=== PATIENT | female | born 1995 | race Hispanic/Latino ===

== ENCOUNTER 2017-07-16 11:48 | Emergency (ER) | payer OTHER ==
[~2017-07-16] VITALS: Ht 152.4 cm; Wt 81.6 kg
== END 2017-07-16 12:23 | disposition home or self-care (01) ==
LOC: ER 11:48
DX: L02.415 Cutaneous abscess of right lower limb (principal)
CPT/HCPCS: 99284

== ENCOUNTER 2017-09-08 19:19 | Emergency (ER) | payer OTHER ==
[~2017-09-08] VITALS: Ht 152.4 cm; Wt 81.6 kg
[2017-09-08 19:56] VITALS: BP 142/91
== END 2017-09-08 20:06 | disposition home or self-care (01) ==
LOC: ER 19:19
DX: L73.2 Hidradenitis suppurativa (principal); L30.9 Dermatitis, unspecified
CPT/HCPCS: 99282

== ENCOUNTER 2017-10-29 19:06 | Inpatient (IN) | payer OTHER ==
[~2017-10-29] VITALS: Ht 152.4 cm; Wt 76.2 kg
[~2017-10-29 19:06] MED LIST: DEXAMETHASONE SOD PHOS INJ 4 MG/ML VIAL ONE; FENTANYL CITRATE/PF 100MCG/2 ML INJ ONE; KETOROLAC TROMETHAMINE 30 MG/ML VIAL ONE; LIDOCAINE HCL 2% LOCAL INJ 5 ML SDV VIAL INJ ONE; MIDAZOLAM HCL 2 MG/2 ML VIAL ONE; ONDANSETRON HCL INJ 2 MG/ML VIAL ONE; PROPOFOL IV EMULSION 10 MG/ML 20 ML VIAL ONE; SEVOFLURANE INHAL SOLN 250 ML PEN BTL ONE
[2017-10-29] MEDS ORDERED: ACETAMINOPHEN 325 MG TAB PO ONE ×2 (19:30)
[2017-10-29 19:46] LABS: BASOPHILS # (AUTO) 0.1 (0.0-0.1); BASOPHILS % 0.3 % (0.0-1.0); EOSINOPHILS # (AUTO) 0.2 (0.0-0.4); EOSINOPHILS % 0.8 % (0.0-6.0); HEMATOCRIT 35.6 % (34.2-44.1); HEMOGLOBIN 11.7 g/dL (12.0-16.0); LYMPHOCYTES # (AUTO) 2.1 (1.0-3.2); MEAN CORPUSCULAR HEMOGLOBIN 26.9 pg (28-32); MEAN CORPUSCULAR HGB CONC 32.9 g/dL (31-35); MEAN CORPUSCULAR VOLUME 81.8 fL (81-99); MONOCYTES # (AUTO) 1.4 (0.2-0.8); MONOCYTES % 5.8 % (4.4-11.3); NEUTROPHILS # (AUTO) 19.8 (2.1-6.9); NEUTROPHILS % 83.2 % (38.7-80.0); PLATELET COUNT 467 x10e3/uL (140-360); RED BLOOD COUNT 4.35 x10e6/uL (3.6-5.1); RED CELL DISTRIBUTION WIDTH 15.3 % (11.7-14.4)
[2017-10-29 19:50] LABS: CLARITY,URINE SL CLOUDY (CLEAR); COLOR,URINE YELLOW (YELLOW)
[2017-10-29 19:51] LABS: BILIRUBIN,URINE NEGATIVE (NEGATIVE); KETONES,URINE TRACE (NEGATIVE); LEUKOCYTE ESTERASE ,URINE NEGATIVE (NEGATIVE); NITRITE,URINE NEGATIVE (NEGATIVE); PROTEIN,URINE DIPSTICK 1+ (NEGATIVE); URINE UROBILINOGEN 1 mg/dL (0.2 - 1)
[2017-10-29 19:58] LABS: ALANINE AMINOTRANSFERASE 16 IU/L (0-55); ALBUMIN 3.2 g/dL (3.5-5.0); ALBUMIN/GLOBULIN RATIO 0.6 (0.8-2.0); ALKALINE PHOSPHATASE 97 IU/L (40-150); ANION GAP 15.5 mmol/L (8-16); BLOOD UREA NITROGEN 7 mg/dL (7-26); BUN/CREATININE RATIO 10 (6-25); CALCIUM 9.2 mg/dL (8.4-10.2); CARBON DIOXIDE 24 mmol/L (22-29); CHLORIDE 97 mmol/L (98-107); CREATININE, SERUM 0.71 mg/dL (0.57-1.11); EST GLOMERULAR FILTRATION RATE > 60 ML/MIN (60-); GLUCOSE 100 mg/dL (74-118); POTASSIUM 3.5 mmol/L (3.5-5.1); SODIUM 133 mmol/L (136-145)
[2017-10-29 20:00] LABS: EPITHELIAL CELLS,URINE MANY /LPF
[2017-10-29 20:01] LABS: MUCUS,URINE MANY (RARE)
[2017-10-29 20:02] LABS: BACTERIA,URINE FEW /HPF
[2017-10-29] MEDS ORDERED: VANCOMYCIN 1GM/NS 250 ML 250 ML IV ONE (20:45)
[2017-10-29] MEDS ORDERED: PIPER-TAZ 3.375 GM 50 ML IV ONE (20:45)
--- NOTE | 2017-10-29 20:58 | Diagnostic Imaging Report ---
EXAM: CT Chest WITH contrast INDICATION: Redness right breast COMPARISON: None. TECHNIQUE: The Chest was scanned utilizing a multidetector helical scanner after administration of IV contrast. Coronal and sagittal reformations were obtained. Reformatted axial MIP images were obtained and reviewed. IV CONTRAST: 100 mL Isovue-370 COMPLICATIONS: None RADIATION DOSE: Total DLP: 519 mGy*cm Estimated effective dose: (DLP x 0.015 x size factor) mSv CTDIvol has been reviewed. It is below the limits set by the Radiation Protocol Committee (RPC). FINDINGS: Lines and Tubes: None. Lower Neck: The visualized thyroid gland is grossly unremarkable with no suspicious or significant nodule identified. Heart and Great Vessels: The aorta and main pulmonary artery measure 24 and 26 mm. respectively. No pericardial effusion. While examination is not tailored for pulmonary artery evaluation, no central pulmonary embolus identified. Lymph Nodes: No suspicious mediastinal or hilar adenopathy. Mildly enlarged right axillary lymph nodes, largest 21 x 11 mm. Lungs: No pneumothorax or pleural effusion. No focal consolidation. Trachea and central bronchi are unremarkable. Upper abdomen: No acute findings. Bones and Soft Tissues: Skin thickening of the right breast with multiple multi septated fluid collections filling majority of right breast. Total area approximately 1 14 x 67 x 88 mm. IMPRESSION: 1. Majority of right breast filled by multiple by multiloculated fluid collections presumably abscesses with overlying skin cellulitis. Please note that inflammatory breast cancer can have similar appearance. Surgical consultation, close clinical correlation and follow-up recommended. Signed by: Dr. Shubham Cono MD on 10/29/2017 8:54 PM
[2017-10-29] MEDS ORDERED: MORPHINE SULFATE 2 MG/ML SYR IV PRN (21:15)
[2017-10-29] MEDS ORDERED: VANCOMYCIN 1GM/NS 250 ML 250 ML IV SCH (21:15)
[2017-10-29] MEDS: SODIUM CHLORIDE 0.9% 1000ML 1,000 ML IV SCH (21:32)
[2017-10-29] MEDS: PIPER-TAZ 3.375 GM 50 ML IV SCH (21:37)
[2017-10-29 22:16] VITALS: BP 110/61
[2017-10-29 22:30] VITALS: BP 110/61
[2017-10-30] VITALS (8 sets, daily range): BP systolic 98–113; BP diastolic 56–73
[2017-10-30] MEDS ORDERED: SODIUM CHLORIDE 0.9% 50ML 50 ML ONE (01:21)
[2017-10-30] MEDS ORDERED: IOPAMIDOL 370 MG/ML 200 ML INFUS..BTL INJ ONE (01:22)
[2017-10-30] MEDS: ACETAMINOPHEN 325 MG TAB PO PRN (02:48)
[2017-10-30 04:48] LABS: BASOPHILS # (AUTO) 0.1 (0.0-0.1); BASOPHILS % 0.3 % (0.0-1.0); EOSINOPHILS # (AUTO) 0.3 (0.0-0.4); EOSINOPHILS % 1.4 % (0.0-6.0); HEMATOCRIT 31.9 % (34.2-44.1); HEMOGLOBIN 10.4 g/dL (12.0-16.0); LYMPHOCYTES # (AUTO) 1.4 (1.0-3.2); MEAN CORPUSCULAR HEMOGLOBIN 26.6 pg (28-32); MEAN CORPUSCULAR HGB CONC 32.6 g/dL (31-35); MEAN CORPUSCULAR VOLUME 81.6 fL (81-99); MONOCYTES # (AUTO) 1.3 (0.2-0.8); MONOCYTES % 6.3 % (4.4-11.3); NEUTROPHILS # (AUTO) 16.8 (2.1-6.9); NEUTROPHILS % 84.3 % (38.7-80.0); PLATELET COUNT 413 x10e3/uL (140-360); RED BLOOD COUNT 3.91 x10e6/uL (3.6-5.1); RED CELL DISTRIBUTION WIDTH 15.3 % (11.7-14.4)
[2017-10-30 05:09] LABS: ALANINE AMINOTRANSFERASE 13 IU/L (0-55); ALBUMIN 2.7 g/dL (3.5-5.0); ALBUMIN/GLOBULIN RATIO 0.6 (0.8-2.0); ALKALINE PHOSPHATASE 85 IU/L (40-150); ANION GAP 13.4 mmol/L (8-16); BLOOD UREA NITROGEN 7 mg/dL (7-26); BUN/CREATININE RATIO 12 (6-25); CALCIUM 8.5 mg/dL (8.4-10.2); CARBON DIOXIDE 23 mmol/L (22-29); CHLORIDE 100 mmol/L (98-107); EST GLOMERULAR FILTRATION RATE > 60 ML/MIN (60-); GLUCOSE 99 mg/dL (74-118); POTASSIUM 3.4 mmol/L (3.5-5.1); SODIUM 133 mmol/L (136-145)
[2017-10-30] MEDS: SODIUM CHLORIDE 0.9% 1000ML 1,000 ML IV SCH (05:27)
[2017-10-30] MEDS: PIPER-TAZ 3.375 GM 50 ML IV SCH ×3 (05:27→22:00)
[2017-10-30] MEDS: VANCOMYCIN 1GM/NS 250 ML 250 ML IV SCH ×2 (09:15→21:35)
--- NOTE | 2017-10-30 09:19 | Consultation ---
DATE OF CONSULTATION: October 30, 2017 Patient is a 22-year-old female who presents with pain and swelling in her right breast. She said she has had symptoms for about 2 weeks, but got progressively worse. She saw a doctor, but nothing was recommended. She came the emergency room yesterday where evaluation revealed a probable abscess in the right breast. Patient has had fever. She has not had any drainage. PAST MEDICAL HISTORY: Otherwise unremarkable. She denies chronic medical problems. She has not had previous surgeries. CURRENT MEDICATIONS: None. ALLERGIES: NO KNOWN ALLERGIES. FAMILY HISTORY: Noncontributory. SOCIAL HISTORY: The patient had smoked occasional cigarettes up until about 4 weeks ago. Says she does not smoke anymore. She occasionally drinks alcohol. REVIEW OF SYSTEMS: As stated above. Otherwise, was negative. PHYSICAL EXAMINATION GENERAL: The patient is awake and alert, and in no distress. VITAL SIGNS: Normal. She did have a temperature 101 during the night. HEENT: Reveals no scleral icterus. NECK: Has no masses. LUNGS: Equal breath sounds are clear bilaterally. CARDIAC: Regular rate and rhythm. No murmur. BREASTS: On the right breast, there is erythema, swelling with fluctuance in the medial aspect of right breast. The remainder of the breast appears normal. ABDOMEN: Soft with no tenderness or mass. EXTREMITIES: No edema. Pulses are palpable. NEUROLOGIC: Intact. LAB TESTS: The white blood cell count was 23,000 admission and 19.9 today. Hemoglobin 10 and hematocrit 32. Chemistries are essentially normal. ASSESSMENT: This is a 22-year-old female with abscess in the right breast, which was very large. PLAN: Incision and drainage to be done today. Also, recommend to continue the patient on IV antibiotics as have been ordered. Also, plan to biopsy the area at the time of the I and D. This was explained to the patient, including risks, benefits and alternatives. She understands. She has had the opportunity to ask questions. Thank you for asking me to see Ms. Soriano. Job#: [id number] KATY
[2017-10-30] MEDS ORDERED: LIDOCAINE HCL 1% LOCAL INJ 20 ML VIAL ONE (11:26)
[2017-10-30] MEDS ORDERED: BACITRACIN 50,000 UNIT VIAL ONE (11:26)
[2017-10-30] MEDS ORDERED: BUPIVACAINE 0.25%/EPI 30ML SDV INJ ONE (11:26)
[2017-10-30] MEDS ORDERED: HYDROCODONE/APAP 5MG-325MG TAB PO PRN (11:45)
[2017-10-30] MEDS ORDERED: ACETAMINOPHEN 325 MG TAB PO PRN (11:45)
[2017-10-30] MEDS ORDERED: MORPHINE SULFATE 2 MG/ML SYR ONE (12:01)
--- NOTE | 2017-10-30 12:21 | Operative Report ---
DATE OF PROCEDURE: October 30, 2017 PREOPERATIVE DIAGNOSIS: Complex abscess, right breast. POSTOPERATIVE DIAGNOSIS: Complex abscess, right breast. PROCEDURE PERFORMED: Incision and drainage of complex abscess, right breast with incisional biopsy from abscess of right breast. GRINDING AND POLISHING LABORER: None. ANESTHESIA: General. INDICATIONS AND FINDINGS: The patient is a 22-year-old female who presents with complaints of pain and swelling in her right breast. At surgery, there was a large abscess involving the right breast tracking to the entire medial aspect of the breast down to the chest wall. It was multiloculated containing approximately 150 mL of purulent fluid. TECHNIQUE: After adequate general anesthesia and the patient in the supine position, the right breast was prepped and draped in a sterile fashion with Betadine solution. A transverse incision was made over the area of swelling and carried down through subcutaneous tissue and abscess cavity was entered. About 150 mL of purulent fluid was drained. A sample was taken for culture and sensitivity. The abscess was multiloculated and tracked inferiorly into the breast and also down to the chest wall. All loculations were broken up. All small cavities were broken up. All purulent fluid was drained. Within the abscess cavity, a biopsy was taken and sample of breast tissue excised. Hemostasis was achieved with electrocautery. The abscess cavity was irrigated with saline. It was then packed open with 1-inch Iodoform gauze and sterile dressing applied. The patient tolerated the procedure well. Estimated blood loss was 25 mL. There were no complications. All counts were correct. Patient was taken to the recovery room in satisfactory condition. Job#: [id number] RI cc:RAINA VINES MD
--- NOTE | 2017-10-30 15:13 | History and Physical ---
FAMILY PHYSICIAN: Dr. Cliff Nieto CHIEF COMPLAINT: Right breast abscess. HISTORY: A 22-year-old female started approximately 2-3 weeks ago. Did a therapy that she knew performed to her breast, and then subsequently when she was doing multiple breast compressions she noticed that there was some bruises and then subsequently swelling. She tried to get into an appointment with her family physician, which she did. Did not obtain antibiotics as yet. The breast got worse. Therefore, the patient came to emergency room for evaluation. Here the patient had a temperature up to 101. She had a large right breast abscess. She is status post breast surgery with incision and drainage of the left breast abscess done by Dr. Cliff Marie. She also has a biopsy of the breast tissue as well. The patient is otherwise stable at this time. PAST MEDICAL HISTORY: Noncontributory. PAST SURGICAL HISTORY: Status post right breast incision and drainage now. SOCIAL HISTORY: The patient does not smoke or use alcohol. No recreational drugs. ALLERGIES: NO KNOWN ALLERGY. HOME MEDICATIONS: None. REVIEW OF SYSTEMS: Right breast swelling, abscess, fever, and pain. PHYSICAL EXAMINATION VITAL SIGNS: Temperature is 101, blood pressure 108/73, pulse rate 95, respirations 18. GENERAL: The patient is not in acute distress. She is awake. HEENT: Normocephalic, atraumatic and anicteric. NECK: Supple grossly. PULMONARY: Clear. CARDIOVASCULAR: Tachycardia. ABDOMEN: Soft. BREASTS: Right breast abscess, status post incision and drainage. NEUROLOGIC: No focal deficit. WBC is 23.8, hemoglobin 11.7, hematocrit 35.6, and platelets are 467,000. Chemistry: Sodium is 133, potassium 3.5, chloride 97, bicarb 24, BUN 7, creatinine 0.7, glucose is 100. Wound culture and breast culture still pending, but there were many gram-positive cocci in clusters. IMPRESSION 1. Right breast abscess with gram-negative cocci in clusters: Most likely staphylococcus. Will check the sensitivity. 2. Status post right breast incision and drainage. PLAN: IV antibiotics. Will consult Dr. Linder. Dr. Cliff Marie already did the surgery. Will monitor the patient closely. Continue with Zosyn and vancomycin for now. Job#: [id number] RI
[2017-10-30] MEDS: SENNOSIDES 8.6 MG TAB PO SCH (17:00)
--- NOTE | 2017-10-30 21:03 | Consultation ---
DATE OF CONSULTATION: REASON FOR CONSULTATION: Right breast abscess. HISTORY: This is a 22-year-old female, history of recurrent folliculitis and cyst. The patient had multiple cyst infections before. Patient comes in with redness and swelling of her right breast. Patient was admitted. PAST MEDICAL HISTORY: Multiple skin infections. ALLERGIES: NKA. SOCIAL HISTORY: There is no smoking, drug abuse, alcohol abuse. FAMILY HISTORY: Otherwise unremarkable. REVIEW OF SYSTEMS: HEENT: Negative. PULMONARY: Negative. CARDIAC: Negative. : Negative. SKIN: No rash. LABS: White count on admission was 23, hemoglobin 11.7. Her sodium 133, potassium 3.5, creatinine of 0.7, glucose 99. Patient was started on Zosyn and vancomycin. Review of systems is negative. PHYSICAL EXAMINATION: GENERAL: She is currently alert and oriented, does not seem to be in acute distress. VITALS: Stable, currently afebrile. HEENT: She does not appear icteric. NECK: Supple. CHEST: Clear. HEART: S1 and S2. No S3, S4, murmur. ABDOMEN: Soft. BREASTS: She just has the surgery. Patient had incision and drainage. IMPRESSION: Breast abscess. Agree with incision and drainage. Continue vancomycin. Continue Zosyn. Await culture and sensitivity. Further recommendations to follow. Job#: [id number]
[2017-10-31] VITALS (7 sets, daily range): BP systolic 103–195; BP diastolic 56–86
[2017-10-31] MEDS: PIPER-TAZ 3.375 GM 50 ML IV SCH ×3 (05:18→22:00)
[2017-10-31 05:35] LABS: ANION GAP 13.7 mmol/L (8-16); BLOOD UREA NITROGEN 6 mg/dL (7-26); BUN/CREATININE RATIO 10 (6-25); CALCIUM 8.7 mg/dL (8.4-10.2); CARBON DIOXIDE 23 mmol/L (22-29); CHLORIDE 104 mmol/L (98-107); CREATININE, SERUM 0.58 mg/dL (0.57-1.11); EST GLOMERULAR FILTRATION RATE > 60 ML/MIN (60-); GLUCOSE 110 mg/dL (74-118); POTASSIUM 3.7 mmol/L (3.5-5.1); SODIUM 137 mmol/L (136-145)
[2017-10-31 06:38] LABS: BASOPHILS % 0.1 % (0.0-1.0); HEMATOCRIT 30.2 % (34.2-44.1); HEMOGLOBIN 9.7 g/dL (12.0-16.0); LYMPHOCYTES # (AUTO) 1.4 (1.0-3.2); LYMPHOCYTES % 7.5 % (18.0-39.1); MEAN CORPUSCULAR HEMOGLOBIN 26.5 pg (28-32); MEAN CORPUSCULAR HGB CONC 32.1 g/dL (31-35); MEAN CORPUSCULAR VOLUME 82.5 fL (81-99); MONOCYTES # (AUTO) 0.8 (0.2-0.8); MONOCYTES % 4.1 % (4.4-11.3); NEUTROPHILS # (AUTO) 16.5 (2.1-6.9); NEUTROPHILS % 87.2 % (38.7-80.0); PLATELET COUNT 456 x10e3/uL (140-360); RED BLOOD COUNT 3.66 x10e6/uL (3.6-5.1); RED CELL DISTRIBUTION WIDTH 15.2 % (11.7-14.4)
[2017-10-31] MEDS: VANCOMYCIN 1GM/NS 250 ML 250 ML IV SCH ×2 (08:15→21:00)
[2017-10-31] MEDS: SENNOSIDES 8.6 MG TAB PO SCH ×2 (09:00→15:36)
[2017-10-31] MEDS: ACETAMINOPHEN 325 MG TAB PO PRN (18:30)
[2017-10-31] MEDS: ONDANSETRON HCL INJ 2 MG/ML VIAL IV PRN (22:13)
[2017-11-01 00:39] VITALS: BP 116/76
[2017-11-01 04:47] LABS: BASOPHILS % 0.3 % (0.0-1.0); EOSINOPHILS # (AUTO) 0.2 (0.0-0.4); HEMOGLOBIN 9.6 g/dL (12.0-16.0); LYMPHOCYTES # (AUTO) 1.8 (1.0-3.2); LYMPHOCYTES % 11.9 % (18.0-39.1); MEAN CORPUSCULAR HEMOGLOBIN 26.3 pg (28-32); MEAN CORPUSCULAR VOLUME 82.2 fL (81-99); MONOCYTES % 6.7 % (4.4-11.3); NEUTROPHILS # (AUTO) 12.3 (2.1-6.9); NEUTROPHILS % 79.2 % (38.7-80.0); PLATELET COUNT 437 x10e3/uL (140-360); RED BLOOD COUNT 3.65 x10e6/uL (3.6-5.1); RED CELL DISTRIBUTION WIDTH 15.2 % (11.7-14.4)
[2017-11-01] MEDS: ACETAMINOPHEN 325 MG TAB PO PRN (04:48)
[2017-11-01] MEDS: PIPER-TAZ 3.375 GM 50 ML IV SCH ×2 (05:10→13:42)
[2017-11-01 05:46] VITALS: BP 116/60
[2017-11-01 08:00] VITALS: BP 116/60
[2017-11-01 08:05] VITALS: BP 118/56
[2017-11-01] MEDS: VANCOMYCIN 1GM/NS 250 ML 250 ML IV SCH (09:00)
[2017-11-01] MEDS: SENNOSIDES 8.6 MG TAB PO SCH ×2 (09:00→16:21)
[2017-11-01] MEDS ORDERED: MORPHINE SULFATE INJ 4 MG/ML INJ IV PRN (11:45)
[2017-11-01] MEDS ORDERED: SODIUM CHLORIDE 0.9% 250ML 250 ML ONE (12:39)
[2017-11-01] MEDS: ONDANSETRON HCL INJ 2 MG/ML VIAL IV PRN (12:44)
[2017-11-01] MEDS ORDERED: TYLENOL WITH C1 EACH PO (15:19)
[2017-11-01] MEDS ORDERED: BACTRIM DS TAB1 EACH PO (15:19)
[2017-11-01 16:00] VITALS: BP 123/76
--- NOTE | 2017-11-02 09:17 | Discharge Summary ---
SUPERVISOR FINAL: Dr. Cliff Marie FINAL DIAGNOSES 1. Right breast abscess, status post incision and drainage with bacteria of methicillin-resistant Staphylococcus aureus. 2. Right breast pain. Biopsies still pending with postsurgical intervention. SUMMARY: A 22-year-old female came in with right breast abscess, swelling, fever, leukocytosis. Patient was immediately taken to the operating room where Dr. Cliff Marie did a breast incision and drainage. The patient's wound culture grew out MRSA. Dr. Linder was consulted. The patient adamantly wanted to go home. On the day of discharge on November 01, 2017, Dr. Linder gave the patient oral antibiotics and also educating the patient on wound care. The patient to follow with Dr. Cliff Marie within this week. Continue with wound care per recommendation and instructions. The patient to follow up with Dr. Linder for antibiotic adjustment if needed. She also was instructed to follow up with her family doctor for medication reconciliation. Again, the patient was given antibiotic prescriptions by Dr. Linder, infectious disease on consultation. Job#: [id number] ND
--- OUTSIDE RECORDS SUMMARY | 2017-12-16 02:51 | XMS REPORT | Continuity of Care Document ---
Author Author [facility] Organization [facility] Address [address] [place] [address] Phone Unavailable Care Team Providers Care Mortgage Originator Name Role Phone NO, PCP PCP Unavailable Insurance Providers Guarantor Deepika Pinto Address [address] [place] [address] Email [email or web address] [email or web address] [facility] Policy Number [id number] Subscriber's Name BoDeepika Relationship 18 Self / Same As Patient Advance Directives Directive Response Recorded Date/Time Does the patient have an advance directive? No 07/16/17 12:51pm If yes, is advance directive on file with [facility]? No 07/16/17 12:51pm If not on file with [facility] will patient provide a copy? No 07/16/17 12:51pm Do you have a Directive to Physician? No 09/08/17 7:31pm Do you have a Medical Power of Quilt Maker? No 09/08/17 7:31pm Do you have an out of hospital Do Not Resuscitate Order? No 09/08/17 7:31pm Do you have any special needs we should be aware of? No 09/08/17 7:49pm Do you have a support person here with you today? No 09/08/17 7:49pm Did patient receive Notice of Privacy Practices? Yes 09/08/17 7:31pm Did patient receive patient rights and responsibilities? Yes 09/08/17 7:31pm Problems No problem information available. Medications No medication information available. Social History Smoking Status Start Date Stop Date Current every day smoker Hospital Discharge Instructions No hospital discharge instruction information available. Plan of Care Discharge Date 09/08/17 8:06pm Disposition HOME, SELF-CARE Condition at Discharge Stable Instructions/Education Provided Skin Abscess Forms Provided Work/School Excuse Prescriptions See Medication Section Referrals MAL WELCH MD Address: [address] [place] [id number] Additional Instructions/Education TAKE MEDICATIONS PRESCRIBED. FOLLOW UP WITH A SURGEON. CALL FOR APPOINTMENT. Functional Status No functional status information available. Allergies, Adverse Reactions, Alerts No known allergies. Immunizations No immunization information available. Vital Signs Acute Vital Signs Vital Response Date/Time Pulse Pulse Rate (adult) 80 bpm (60 - 90) 09/08/2017 7:56pm Respiratory Rate 18 bpm (12 - 24) 09/08/2017 7:56pm Blood Pressure 142/91 mm Hg 09/08/2017 7:56pm Height 5 ft 0 in 09/08/2017 7:26pm Weight 180 lb 09/08/2017 7:26pm Body Mass Index 35.2 kg/m^2 09/08/2017 7:26pm Results No relevant diagnostic test, laboratory data and/or discharge summary information available. Procedures No procedure information available. Encounters Encounter Location Arrival/Admit Date Discharge/Depart Date Attending Provider Departed Emergency Room [facility] 09/08/17 7:19pm 8:06pm FANY ABBOTT MD Departed Emergency Room [facility] 07/16/17 11:48am 07/16 12:23pm ISAIAH LUGO MD
--- OUTSIDE RECORDS SUMMARY | 2017-12-16 02:52 | XMS REPORT ---
Author Author [facility] Address Unknown Phone Unavailable Care Team Providers Care Otolaryngologist Name Role Phone FANY ABBOTT Unavailable Unavailable Payers Payer Name Policy Type Policy Number Effective Date Expiration Date Problems This patient has no known problems. Allergies, Adverse Reactions, Alerts Allergy Name Allergy Type Status Severity Reaction(s) Onset Date Inactive Date Treating Clinician Comments No Known Allergies DA Active U 2017-01-14 00:00:00 Medications This patient has no known medications. Results Test Description Test Time Test Comments Text Results Atomic Results Result Comments CT CHEST W 2017-10-29 20:51:00 [place] [address] Patient Name: SCOTT PINTO MR #: [id number] : 1995 Age/Sex: 22/F Req #: [id number] Adm Physician: Ordered by: KARLEY PAINTER RN [facility] ICU Report #: [id number] Location: ER Room/Bed: Procedure: [id number] CT/CT CHEST W Exam Date: 10/29/17 Exam Time: 2031 REPORT STATUS: Signed EXAM: CT Chest WITH contrast INDICATION: Redness right breast COMPARISON: None. TECHNIQUE : The Chest was scanned utilizing a multidetector helical scanner after administration of IV contrast. Coronal and sagittal reformations were obtained. Reformatted axial MIP images were obtained and reviewed. IV CONTRAST: 100 mL Isovue-370 COMPLICATIONS: None RADIATION DOSE: Total DLP: 519 mGy*cm Estimated effective dose : (DLP x 0.015 x size factor) mSv CTDIvol has been reviewed. It is below the limits set by the Radiation Protocol Committee (RPC). FINDINGS: Lines and Tubes: None. Lower Neck: The visualized thyroid gland is grossly unremarkable with no suspicious or significant nodule identified. Heart and Great Vessels: The aorta and main pulmonary artery measure 24 and 26 mm. respectively. No pericardial effusion. While examination is not tailored for pulmonary artery evaluation, no central pulmonary embolus identified. Lymph Nodes: No suspicious mediastinal or hilar adenopathy. Mildly enlarged right axillary lymph nodes, largest 21 x 11 mm. Lungs: No pneumothorax or pleural effusion. No focal consolidation. Trachea and central bronchi are unremarkable. Upper abdomen: No acute findings. Bones and Soft Tissues: Skin thickening of the right breast with multiple multi septated fluid collections filling majority of right breast. Total area approximately 1 14 x 67 x 88 mm. IMPRESSION: 1. Majority of right breast filled by multiple by multiloculated fluid collections presumably abscesses with overlying skin cellulitis. Please note that inflammatory breast cancer can have similar appearance. Surgical consultation, close clinical correlation and follow-up recommended. Signed by: Dr. Shubham Coon MD on 10/29/2017 8:54 PM Dictated By: SHUBHAM COON MD 53 Transcribed By: RAMIREZ on 2053 COPY TO: KARLEY PAINTER NP
== END 2017-11-01 17:41 | disposition home or self-care (01) | DRG 585 ==
LOC: ER 19:06 → ERHOLD 21:14 → MED/SURG2 22:02
PROVIDERS: ADMIT Internal Medicine; ATTEND Internal Medicine
PROC: 0H9T0ZZ Drainage of Right Breast, Open Approach (ICD-10-PCS; principal; 2017-10-30 11:00)
PROC: 0HBT0ZX Excision of Right Breast, Open Approach, Diagnostic (ICD-10-PCS; principal; 2017-10-30 11:00)
DX: N61.1 Abscess of the breast and nipple (principal); A49.02 Methicillin resistant Staphylococcus aureus infection, unspecified site; B96.89 Other specified bacterial agents as the cause of diseases classified elsewhere; Z16.39 Resistance to other specified antimicrobial drug
CPT/HCPCS: 36415; 71260; 80048; 80053; 80202; 81001; 84702; 85025; 87071; 87075; 87186; 87205; 88304; 88305; 96361; 99284; J1100; J1885; J2001; J2250; J2270; J2405; J2543; J3370; J7030; J7050; Q9967